=== PATIENT | male | born 1990 | race Caucasian/White ===

== ENCOUNTER 2018-09-03 19:32 | Emergency (ER) | payer SELFPAY ==
[~2018-09-03] VITALS: Ht 175.3 cm; Wt 77.1 kg
[2018-09-03] MEDS ORDERED: IBUPROFEN 600 MG TABLET PO ONE ×2 (21:00→21:02)
[2018-09-03 21:55] VITALS: BP 128/76
== END 2018-09-03 21:55 | disposition home or self-care (01) ==
LOC: ER 19:36
DX: S90.32XA Contusion of left foot, initial encounter (principal); S90.512A Abrasion, left ankle, initial encounter; F17.200 Nicotine dependence, unspecified, uncomplicated; Z60.2 Problems related to living alone; W05.2XXA Fall from non-moving motorized mobility scooter, initial encounter; Y93.55 Activity, bike riding; Y92.89 Other specified places as the place of occurrence of the external cause; Y99.8 Other external cause status
CPT/HCPCS: 73610-TC